=== PATIENT | male | born 1955 | race Caucasian/White ===

== ENCOUNTER → 2016-05-23 07:48 | Outpatient (CLI) | payer OTHER | END | disposition home or self-care (01) | LOC: D.CT 07:48 | DX: R91.1 Solitary pulmonary nodule (principal) ==

== ENCOUNTER → 2016-11-12 07:38 | Outpatient (CLI) | payer OTHER | END | disposition home or self-care (01) | LOC: D.CT 07:38 | DX: R91.1 Solitary pulmonary nodule (principal) ==